=== PATIENT | male | born 1965 | race Two or more races ===

== ENCOUNTER 2017-11-21 14:19 | Emergency (ER) | payer OTHER ==
[2017-11-21 14:32] VITALS: BP 157/90
--- NOTE | 2017-11-21 14:56 | UC ---
Shoulder Pain HPI - HPI Summary HPI Summary: 52 yo c/o left scapula pain after stretching his arm 11/15/17 at home. He states ibuprofen has helped but not completely eliminated the pain and it hovers btwn 4-07/18. States he hurt his right shoulder years ago playing bicycle polo. Denies tingling/burning/numbness or weakness - History of Current Complaint Chief Complaint: UCUpperExtremity Stated Complaint: SHOULDERBLADE PAIN Time Seen by Provider: 11/21/17 14:45 Hx Obtained From: Patient Onset/Duration: Sudden Onset, Lasting Days Timing: Constant Severity Initially: Moderate Severity Currently: Moderate Pain Intensity: 6 Character: Dull, Aching, Stiffness Aggravating Factor(s): Movement Alleviating Factor(s): OTC Meds Associated Signs And Symptoms: Positive: Negative - Risk Factors Non-Orthopedic Risk Factor: Negative DVT Risk Factors: Negative Septic Arthritis Risk Factor: Negative - Allergies/Home Medications Allergies/Adverse Reactions: Allergies Allergy/AdvReac Type Severity Reaction Status Date / Time No Known Allergies Allergy Verified 11/21/17 14:32 Home Medications: Home Medications Escitalopram Oxalate [Lexapro 10 mg] 1 tab PO DAILY 11/21/17 [History Confirmed 11/21/17] Finasteride 1 tab PO DAILY 11/21/17 [History Confirmed 11/21/17] PMH/Surg Hx/FS Hx/Imm Hx Psychological History: Depression - Surgical History Surgical History: Yes Surgery Procedure, Year, and Place: tubes in ears as a child. adenoids out - Family History Known Family History: Positive: Diabetes - Social History Alcohol Use: Occasionally Substance Use Type: Prescribed Smoking Status (MU): Never Smoked Tobacco Review of Systems Musculoskeletal: Arthralgia, Myalgia All Other Systems Reviewed And Are Negative: Yes Physical Exam - Summary Physical Exam Summary: tender on infraspinatus muscle right shoulder. Negative impingement sign, negative [place] sign, negative empty can test. FROM, sensory and strength intact. Triage Information Reviewed: Yes Appearance: Well-Appearing, No Pain Distress, Well-Nourished Vital Signs: Initial Vital Signs Temp 98.6 F 11/21/17 14:30 Pulse 74 11/21/17 14:30 Resp 12 11/21/17 14:30 BP 157/90 11/21/17 14:30 Pulse Ox 99 11/21/17 14:30 Vital Signs Reviewed: Yes Eyes: Positive: Conjunctiva Clear ENT: Positive: Hearing grossly normal Neck: Positive: Supple, Nontender, No Lymphadenopathy Respiratory: Positive: Chest non-tender, Lungs clear, Normal breath sounds, No respiratory distress Cardiovascular: Positive: RRR, No Murmur, Pulses Normal, Brisk Capillary Refill Abdomen Description: Positive: Nontender Bowel Sounds: Positive: Present Musculoskeletal: Positive: Strength Intact, ROM Intact, No Edema Shoulder Course/Dx - Course Course Of Treatment: Patient with right shoulder pain with infraspinatus spasm, will benefit from PT due to past injury; ibuprofen and tizanidine which were prescribed. BP reading elevated, d/w patient to f/u with PCP for monitoring. - Differential Dx/Diagnosis Provider Diagnoses: elevated BP without diagnosis of HTN. shoulder pain Discharge - Sign-Out/Discharge Documenting (check all that apply): Patient Departure All imaging exams completed and their final reports reviewed: No Studies - Discharge Plan Condition: Stable Disposition: HOME Referrals: Nahum Begreron MD [Primary Care Provider] - - Billing Disposition and Condition Condition: STABLE Disposition: Home
== END 2017-11-21 15:17 | disposition home or self-care (01) ==
LOC: UCEAST 14:19
DX: M25.512 Pain in left shoulder (principal); R03.0 Elevated blood-pressure reading, without diagnosis of hypertension; F32.9 Major depressive disorder, single episode, unspecified
CPT/HCPCS: 99212; G0463

== ENCOUNTER 2020-06-22 14:35 | Observation (INO) ==
[2020-06-22 16:36] LABS: ABS Eosinophils 0.1 10^3/ul (0-0.6); ABS Lymphocytes 1.6 10^3/ul (1.0-4.8); ABS Monocytes 1.1 10^3/ul (0-0.8); ABS Neutrophils 9.9 10^3/ul (1.5-7.7); Eosinophil % 0.6 %; Hematocrit 46 % (42-52); Lymphocyte % 12.5 %; Mean Corpuscular HGB Conc 35 g/dL (31-36); Mean Corpuscular Hemoglobin 30 pg (27-31); Mean Corpuscular Volume 86 fL (80-94); Mean Platelet Volume 8.4 fL (7.4-10.4); Platelet Count 295 10^3/uL (150-450); Red Blood Count 5.34 10^6 /uL (4.18-5.48); Red Cell Distribution Width 13 % (10-15); White Blood Count 12.6 10^3/uL (3.5-10.8)
[2020-06-22 16:56] LABS: Albumin 4.2 g/dL (3.2-5.2); Albumin/Globulin Ratio 1.4 (1-3); C Reactive Protein 39.74 mg/L (<8.01); Calcium 9.5 mg/dL (8.6-10.3); EGFR African American 86.5 (>60); EGFR Non-African American 71.5 (>60); Globulin 2.9 g/dL (2-4); Potassium 4.1 mmol/L (3.5-5.0); Total Bilirubin 0.6 mg/dL (0.2-1.0); Total Protein 7.1 g/dL (6.4-8.9)
[2020-06-22] MEDS ORDERED: Iohexol 300 (CONTRAST) 10 ML SDV IV ONE (22:25)
[2020-06-22] MEDS ORDERED: HYDROmorphone 1 MG/1 ML SYRINGE IV SLOW PU PRN (23:24)
[2020-06-22] MEDS ORDERED: Ondansetron 4 mg VIAL 2 MG/ML 2 ml VIAL IV PRN (23:24)
[2020-06-22] MEDS ORDERED: Piperacillin/Tazobac ADVAN 3.375 GM in NS 0.9% 100 ml BAG 100 ML IV ONE (23:27)
[2020-06-22] MEDS ORDERED: Lactated Ringers 1000 ml BAG 1,000 ML IV SCH ×2 (23:45)
[2020-06-23] MEDS: Piperacillin/Tazobactam VIAL 3.375 GM in NS 0.9% 100 ml BAG 100 ML IVPB SCH ×2 (03:57→15:26)
[2020-06-23] MEDS ORDERED: Bupivacaine 0.25% SDV 30 ML ONE (09:39)
[2020-06-23] MEDS ORDERED: Midazolam 2 mg/2 ml VIAL 1 mg/ml 2 ml VIAL (2 mg) ONE (09:45)
[2020-06-23] MEDS ORDERED: Succinylcholine 200 mg VIAL 20 mg/ml 10 ml VIAL (200 mg) ONE (09:49)
[2020-06-23] MEDS ORDERED: Lidocaine 2% PF 5 ML VIAL ONE (09:49)
[2020-06-23] MEDS ORDERED: Propofol 10 MG/ML 20 ML BTL ONE (09:49)
[2020-06-23] MEDS ORDERED: fentaNYL 100 mcg/2 ml 50 MCG/ML VIAL ONE ×2 (09:52→12:21)
[2020-06-23] MEDS ORDERED: ceFAZolin 2 GM PREMIX 2 GM/50 ML BAG ONE (09:56)
[2020-06-23] MEDS ORDERED: Rocuronium 50 mg VIAL 10 mg/ml 5 ml VIAL (50 mg) ONE ×3 (10:27→10:44)
[2020-06-23] MEDS ORDERED: Cisatracurium 2 MG/ML MDV 5 ML ONE (10:43)
[2020-06-23] MEDS ORDERED: Ondansetron 4 mg VIAL 2 MG/ML 2 ml VIAL ONE (10:47)
[2020-06-23] MEDS ORDERED: Dexamethasone IV 4 MG/ML VIAL 1 ml VIAL ONE (10:47)
[2020-06-23] MEDS ORDERED: Naloxone 0.4 mg VIAL 0.4 mg/ml 1 ml VIAL IV PRN (11:00)
[2020-06-23] MEDS ORDERED: DiMENhydriNATE IV 50 mg/ml 1 ml VIAL IV PUSH PRN (11:00)
[2020-06-23] MEDS ORDERED: fentaNYL 100 mcg/2 ml 50 MCG/ML VIAL IV PRN (11:00)
[2020-06-23] MEDS ORDERED: Acetaminophen IV 1 GM/100ML 100 ML ONE (11:46)
[2020-06-23] MEDS ORDERED: Sugammadex 500 MG/5 ML 5 ml VIAL IV PUSH ONE (11:46)
[2020-06-23] MEDS ORDERED: HYDROmorphone 1 MG/1 ML SYRINGE IV SLOW PU PRN (12:36)
[2020-06-23] MEDS ORDERED: Lactated Ringers 1000 ml BAG 1,000 ML IV SCH (13:00)
[2020-06-23] MEDS: oxyCODONE/Acetamin 5/325 mg TAB PO PRN ×2 (14:53→19:28)
[2020-06-23] MEDS ORDERED: Piperacillin/Tazobactam VIAL 3.375 GM in NS 0.9% 100 ml BAG 100 ML IVPB SCH (16:00)
[2020-06-24] MEDS: oxyCODONE/Acetamin 5/325 mg TAB PO PRN ×3 (03:05→15:06)
[2020-06-24 15:38] VITALS: BP 118/70
== END 2020-06-24 17:40 | disposition home or self-care (01) ==
LOC: SSU 14:35 → ED 14:35 → SSU 06-23 02:10
PROVIDERS: ADMIT Surgery; ATTEND Surgery